=== PATIENT | female | born 1975 | race Caucasian/White ===

== ENCOUNTER 2020-05-08 13:19 | Outpatient (CLI) | payer BC ==
--- NOTE | 2020-05-08 13:57 | MMO ---
Left Breast MAMMO Unilat Diag DDI LT+ARAM. CLINICAL HISTORY: Patient is 45 years old and is seen for additional evaluation requested from prior study. The patient has no family history of breast cancer. The patient has no personal history of cancer. VIEWS: The views performed were: left craniocaudal with tomosynthesis; left mediolateral oblique with tomosynthesis; and left mediolateral with tomosynthesis. FILMS COMPARED: The present examination has been compared to a prior imaging study performed at [facility] on 04/25/2020. This study has been interpreted with the assistance of computer-aided detection. MAMMOGRAM FINDINGS: The breast is almost entirely fat. There are multiple intramammary lymph nodes seen in the left breast. There are no suspicious masses, suspicious calcifications, or areas of architectural distortion. IMPRESSION: THERE IS NO MAMMOGRAPHIC EVIDENCE OF MALIGNANCY. A ROUTINE FOLLOW-UP MAMMOGRAM IN 1 YEAR IS RECOMMENDED. THE RESULTS OF THIS EXAM WERE SENT TO THE PATIENT. ACR BI-RADS Category 2 - Benign finding MAMMOGRAPHY NOTE: 1. A negative mammogram report should not delay a biopsy if a dominant of clinically suspicious mass is present. 2. Approximately 10% to 15% of breast cancers are not detected by mammography. 3. Adenosis and dense breasts may obscure an underlying neoplasm. Reported by: JENNIFER BRANHAM MD Electonically Signed: [id number]
== END 2020-05-08 13:20 | disposition home or self-care (01) ==
LOC: BICMAMMO 13:19
PROVIDERS: ATTEND Family Medicine
DX: R92.8 Other abnormal and inconclusive findings on diagnostic imaging of breast (principal)
CPT/HCPCS: G0279

== ENCOUNTER 2021-01-09 16:38 | Emergency (ER) | payer BC ==
[2021-01-09] MEDS ORDERED: Aspirin Chewable 81 MG TAB ONE (17:58)
[2021-01-09 18:01] LABS: #Basophils 0.1 thou/uL (0.0-0.2); #Eosinphils 0.3 thou/uL (0.0-0.7); #Lymphocytes 3.6 thou/uL (1.20-3.40); #Monocytes 0.7 thou/uL (0.11-0.59); #Neutrophils 8.2 thou/uL (1.40-6.50); %Basophils 0.7 % (0.0-1.0); %Eosinophils 2.7 % (0.0-10.0); %Lymphocytes 27.4 % (21.0-51.0); %Monocytes 5.8 % (0.0-10.0); %Neutrophils 63.5 % (42.0-75.0); Hemoglobin 13.5 g/dL (12.0-16.0); Mean Corpuscular HGB CONC 35.2 g/dL (32.0-36.0); Mean Corpuscular Hemoglobin 30.9 pg (27.0-31.0); Mean Corpuscular Volume 87.9 fL (78.0-98.0); Mean Platelet Volume 8.8 fL (7.4-10.4); Platelet Count 269 thou/uL (130-400); RBC Distribution Width 13.3 % (11.5-14.5); Red Blood Cell (RBC) Count 4.38 mill/uL (4.20-5.40); White Blood Cell (WBC) Count 12.9 thou/uL (4.8-10.8)
[2021-01-09 18:21] LABS: ALT (SGPT) 8 U/L (8-55); AST (SGOT) 12 U/L (5-34); Albumin 3.8 g/dL (3.5-5.0); Alkaline Phosphatase 102 U/L (40-110); Anion Gap 13 mmol/L (10-20); BUN (Urea Nitrogen) 15 mg/dL (7.0-18.7); Bilirubin, Total 0.2 mg/dL (0.2-1.2); Calc. Creatinine Clearance 0 mL/min (70-130); Calcium 8.8 mg/dL (7.8-10.44); Carbon Dioxide 20 mmol/L (22-29); Chloride 108 mmol/L (98-107); Globulin 3.1 g/dL (2.4-3.5); Glucose 115 mg/dL (70-105); Lipase 81 U/L (8-78); Potassium 3.9 mmol/L (3.5-5.1); Protein, Total 6.9 g/dL (6.0-8.3); Sodium 137 mmol/L (136-145)
== END 2021-01-09 18:44 | disposition home or self-care (01) ==
LOC: ERS 16:38
DX: K21.9 Gastro-esophageal reflux disease without esophagitis (principal); F17.210 Nicotine dependence, cigarettes, uncomplicated
CPT/HCPCS: 36415; 71045; 80053; 83690; 83880; 84484; 85025; 85379; 93005